=== PATIENT | male | born 1975 | race Hispanic/Latino ===

== ENCOUNTER 2022-04-27 06:23 | Emergency (ER) | payer SELFPAY ==
[~2022-04-27] VITALS: Ht 170.2 cm; Wt 131.5 kg
[2022-04-27] MEDS ORDERED: SODIUM CHLORIDE 0.9% 1000ML 1,000 ML IV STA (06:26)
[2022-04-27] MEDS ORDERED: ONDANSETRON HCL INJ 2MG/ML 2ML 2 MG/ML VIAL IV STA (06:26)
[2022-04-27] MEDS ORDERED: Morphine 4mg INJECTION 4 MG/ML INJ IV STA (06:26)
[2022-04-27] MEDS ORDERED: BACTRIM DS TAB1 EACH PO (06:49)
[2022-04-27] MEDS ORDERED: CELEBREX100 MG PO (07:11)
[2022-04-27] MEDS ORDERED: PREDNISONE20 MG PO (07:11)
== END 2022-04-27 07:16 | disposition home or self-care (01) ==
LOC: ER 06:26
DX: M25.561 Pain in right knee (principal); M10.9 Gout, unspecified; M25.461 Effusion, right knee
CPT/HCPCS: 99282